=== PATIENT | male | born 1985 | race Caucasian/White ===

== ENCOUNTER 2018-07-09 12:33 | Emergency (ER) | payer MEDICAID ==
[~2018-07-09] VITALS: Ht 160 cm; Wt 68.2 kg
[~2018-07-09 12:33] MED LIST: OLAN10TA22 PO
[2018-07-09 13:41] VITALS: BP 134/81
[2018-07-09] MEDS ORDERED: PERTUSS(ACELL),DIPH,TET VAC/PF 0.5 ML VIAL IM ONE (14:15)
== END 2018-07-09 14:26 | disposition home or self-care (01) ==
LOC: EMS 12:34
DX: S50.02XA Contusion of left elbow, initial encounter (principal); S80.812A Abrasion, left lower leg, initial encounter; Z79.899 Other long term (current) drug therapy; V19.9XXA Pedal cyclist (driver) (passenger) injured in unspecified traffic accident, initial encounter; Y93.89 Activity, other specified; Y92.89 Other specified places as the place of occurrence of the external cause; Y99.8 Other external cause status
CPT/HCPCS: 29105; 90471; 90715

== ENCOUNTER 2019-08-08 13:53 | Emergency (ER) | payer MEDICAID ==
[~2019-08-08] VITALS: Ht 157.5 cm; Wt 63.6 kg
[2019-08-08 14:10] VITALS: BP 141/89
== END 2019-08-08 20:01 | disposition left against medical advice (07) ==
LOC: EMS 13:55
DX: S50.861A Insect bite (nonvenomous) of right forearm, initial encounter (principal); Z53.21 Procedure and treatment not carried out due to patient leaving prior to being seen by health care provider; W57.XXXA Bitten or stung by nonvenomous insect and other nonvenomous arthropods, initial encounter; Y93.89 Activity, other specified; Y92.89 Other specified places as the place of occurrence of the external cause; Y99.8 Other external cause status

== ENCOUNTER 2019-08-10 14:12 | Emergency (ER) | payer MEDICAID ==
[~2019-08-10] VITALS: Ht 167.6 cm; Wt 63.6 kg
[2019-08-10] MEDS ORDERED: LIDOCAINE 1%/EPI 1:200,000/PF 10 ML VIAL INJ ONE (16:45)
[2019-08-10] MEDS ORDERED: PERTUSS(ACELL),DIPH,TET VAC/PF 0.5 ML VIAL IM ONE (16:45)
[2019-08-10] MEDS ORDERED: POVIDONE-IODINE 10% 15 ML SOLUTION UD TP ONE (16:45)
[2019-08-10 18:35] VITALS: BP 135/88
== END 2019-08-10 18:35 | disposition home or self-care (01) ==
LOC: EMS 14:14
DX: L02.413 Cutaneous abscess of right upper limb (principal); L03.113 Cellulitis of right upper limb; R03.0 Elevated blood-pressure reading, without diagnosis of hypertension; F15.90 Other stimulant use, unspecified, uncomplicated; Z59.0 Homelessness; Z79.899 Other long term (current) drug therapy
CPT/HCPCS: 10060; 73090; 90471; 90715; 99283; J3490